=== PATIENT | female | born 1940 ===

== ENCOUNTER 2018-09-29 16:53 | Emergency (ER) | payer MEDICARE, MEDICAID ==
[2018-09-29 17:01] VITALS: BMI 23.6
[2018-09-29 17:02] VITALS: RESP 20
[2018-09-29] MEDS ORDERED: Tdap Vaccine 0.5 ml Vial (10-64 yrs) IM ONE ×2 (17:12→17:30)
--- NOTE | 2018-09-29 17:13 | C.PDOC ---
History Of Present Illness 78 year old female with a PMHx of HTN and HLD presents to the ED for evaluation of right foot injury sustained this morning. States she stepped on a nail at 10:00am this morning, which went through her sneaker. Since then patient has had right foot pain. She reports the nail was attached to a piece of wood, so the entire nail was removed from the wound. No suspicion for retained foreign body. Patient denies any associated fall or head trauma. She is able to ambulate although with pain. Unknown last Tetanus booster. Otherwise patient denies any weakness, numbness, paresthesias, or other injury. Time Seen by Provider: 09/29/18 16:56 Chief Complaint (Nursing): Lower Extremity Problem/Injury History Per: Patient History/Exam Limitations: no limitations Onset/Duration Of Symptoms: Hrs Current Symptoms Are (Timing): Still Present Past Medical History Reviewed: Historical Data, Nursing Documentation, Vital Signs Vital Signs: Last Vital Signs Temp 98.5 F 09/29/18 17:01 Pulse 80 09/29/18 17:01 Resp 20 09/29/18 17:01 BP 169/89 H 09/29/18 17:01 Pulse Ox 97 09/29/18 17:01 - Medical History PMH: Asthma, Depression, Emphysema, HTN, Hyperlipidemia Denies: HIV, Chronic Kidney Disease - [facility] Procedures ESOPHAGOGASTRODUODENOSCOPY [EGD] W/CLOSED BIOPSY (06/28/13) INJECT/INFUSE NEC (12/09/12) Family History: States: Unknown Family Hx - Social History Hx Tobacco Use: No Hx Alcohol Use: No Hx Substance Use: No Review Of Systems Except As Marked, All Systems Reviewed And Found Negative. Constitutional: Negative for: Fever, Chills Cardiovascular: Negative for: Chest Pain, Palpitations Respiratory: Negative for: Cough, Shortness of Breath Gastrointestinal: Negative for: Nausea, Vomiting, Abdominal Pain Musculoskeletal: Positive for: Foot Pain. Negative for: Neck Pain Skin: Positive for: Lesions (puncture wound to right foot) Neurological: Negative for: Weakness, Numbness, Incoordination Physical Exam - Physical Exam Appears: Well, Non-toxic, No Acute Distress Skin: Warm, Dry, Other (Puncture wound to the plantar surface of right foot just proximal to MTP joints) Head: Atraumatic, Normacephalic Eye(s): bilateral: Normal Inspection Neck: Normal ROM Chest: Symmetrical Cardiovascular: Rhythm Regular Respiratory: Normal Breath Sounds, No Accessory Muscle Use, Other (No respiratory distress) Extremity: Normal ROM (with full ROM of right foot and digits), Capillary Refill (< 2 sec), No Deformity, No Swelling, Other (Mild erythema noted to dorsal aspect of right foot, over the 3rd and 4th metatarsals, no increased warmth) Pulses: Left Dorsalis Pedis: Normal, Right Dorsalis Pedis: Normal Neurological/Psych: Oriented x3, Normal Speech, Normal Motor, Normal Sensation Gait: Steady ED Course And Treatment O2 Sat by Pulse Oximetry: 97 (RA) Pulse Ox Interpretation: Normal - Other Rad Right Foot XR X-Ray: Read By Radiologist Interpretation: Accession No. : [id number]. Patient Name / ID : CEZAR BYRNES / [id number]. Exam Date : 09/29/2018 17:33:11 ( Approved ). Study Comment : Sex / Age : F / 78Y. Creator : Karen Ackerman MD. Dictator : Karen Ackerman MD. Orthotics Assistant : Corporate Tax Manager : Karen Ackerman MD. Approver2 : Report Date : 09/29/2018 18:46:14. My Comment : . PROCEDURE: Right foot radiographs. HISTORY: stepped on nail, r/o FB. COMPARISON: None available. FINDINGS: BONES: Osseous demineralization. No acute displaced fracture. JOINTS: No dislocation. SOFT TISSUES: Mild soft tissue swelling. Vascular calcifications. No evidence of radiopaque foreign body. OTHER FINDINGS: None. IMPRESSION: Mild soft tissue swelling. No evidence of radiopaque foreign body. Medical Decision Making Medical Decision Making: Plan: - Right foot x-ray - Tetanus booster - 650 mg PO Tylenol - 500 mg PO Cipro Bacitracin and wound dressing applied. Patient advised that x-ray is negative for fracture. Patient remains AAOx3, in no acute distress, ambulating in the ED with steady gait. Plan is to discharge patient home with Rx for Cipro. Advised to take antibiotic as written and follow up with PMD and podiatry. Pt states she will followup as instructed. Diagnostic testing results and plan of care discussed with patient. Strict instructions given regarding prescription use, importance of followup, and signs/symptoms to return to ER including worsening redness, swelling, pain, or any other new/worsening symptoms. Pt verbalized understanding of discussion. Patient is A&Ox3, ambulating with steady gait, with vital signs stable for discharge. Disposition Counseled Patient/Family Regarding: Studies Performed, Diagnosis, Need For Followup, Rx Given - Disposition Referrals: [facility] [Outside] Podiatry Clinic [Outside] Disposition: HOME/ ROUTINE Disposition Time: 17:49 Condition: STABLE Additional Instructions: Cipro cada 12 horas dilia 7 morris. Tylenol anastasiya sea necesario para el dolor Mantenga la herida limpia, seca y cubierta. Seguimiento con podologa en 2 omrris. Seguimiento con mdico primario en 2 morris. 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 - Scribe Statement The provider has reviewed the documentation as recorded by the Scribe Cyndie Mathews All medical record entries made by the Scribe were at my direction and person ally dictated by me. I have reviewed the chart and agree that the record accurately reflects my personal performance of the history, physical exam, medical decision making, and the department course for this patient. I have also personally directed, reviewed, and agree with the discharge instructions and disposition.
[2018-09-29] MEDS ORDERED: Bacitracin 500 Units/gm Oint Foilpak UD TOP ONE (18:25)
[2018-09-29] MEDS ORDERED: Bacitracin 500 Units/gm Oint Foilpak UD ONE (18:40)
--- NOTE | 2018-09-29 18:49 | RAD ---
PROCEDURE: Right foot radiographs. HISTORY: stepped on nail, r/o FB COMPARISON: None available. FINDINGS: BONES: Osseous demineralization. No acute displaced fracture. JOINTS: No dislocation. SOFT TISSUES: Mild soft tissue swelling. Vascular calcifications. No evidence of radiopaque foreign body. OTHER FINDINGS: None. IMPRESSION: Mild soft tissue swelling. No evidence of radiopaque foreign body.
[2018-09-29 19:28] VITALS: BP 157/83; PULSE 76; TEMP 98.7
[2018-09-30 00:53] VITALS: O2SAT 97
== END 2018-09-29 19:28 | disposition home or self-care (01) ==
LOC: C.ER 16:53
DX: S91.331A Puncture wound without foreign body, right foot, initial encounter (principal); W45.0XXA Nail entering through skin, initial encounter; E78.5 Hyperlipidemia, unspecified; I10 Essential (primary) hypertension; Z23 Encounter for immunization